=== PATIENT | female | born 1995 | race Caucasian/White ===

== ENCOUNTER → 2019-11-12 11:18 | Outpatient (BNVA) | payer OTHER, SELFPAY | PROVIDERS: Family Provider Family Medicine; PCP Family Medicine; Visit Provider Psychiatry & Neurology Psychiatry | DX: F33.2 Major depressive disorder, recurrent severe without psychotic features (principal); F40.10 Social phobia, unspecified | CPT/HCPCS: 99213 ==

== ENCOUNTER → 2019-12-02 11:20 | Outpatient (BNVA) | payer OTHER, SELFPAY | PROVIDERS: Family Provider Family Medicine; PCP Family Medicine; Visit Provider Specialist | DX: G47.411 Narcolepsy with cataplexy (principal) | CPT/HCPCS: 99213 ==

== ENCOUNTER → 2020-05-31 11:42 | Outpatient (BNVA) | payer OTHER, SELFPAY | PROVIDERS: Family Provider Family Medicine; PCP Family Medicine; Visit Provider Specialist | DX: G47.419 Narcolepsy without cataplexy (principal) | CPT/HCPCS: G0463 ==

== ENCOUNTER → 2020-06-01 09:52 | Outpatient (BNVA) | payer OTHER, SELFPAY | PROVIDERS: Family Provider Family Medicine; PCP Family Medicine; Visit Provider Specialist | DX: G47.411 Narcolepsy with cataplexy (principal); F15.10 Other stimulant abuse, uncomplicated | CPT/HCPCS: 99214 ==

== ENCOUNTER → 2020-06-13 09:03 | Outpatient (BNVA) | payer OTHER, SELFPAY | PROVIDERS: Family Provider Family Medicine; PCP Family Medicine; Visit Provider Psychiatry & Neurology Psychiatry | DX: G47.411 Narcolepsy with cataplexy (principal); F15.10 Other stimulant abuse, uncomplicated | CPT/HCPCS: 99213 ==

== ENCOUNTER 2020-09-06 18:07 | Emergency (ER) | payer OTHER, SELFPAY ==
[2020-09-06 18:16] VITALS: BP 109/67; PULSE 91; RESP 18; TEMP 36.6; O2SAT 97; BMI 36.3
--- NOTE | 2020-09-06 18:48 | XR_ITS ---
WS: [id number] XR ankle LT min 3V* [id number] REASON FOR EXAM: injury FINDINGS: Ankle mortise is preserved. No fracture or other focal bony abnormality. Soft tissue swelling around the ankle joint. XR/XR ankle LT min 3V* [id number] IMPRESSION: No fracture or dislocation.
--- NOTE | 2020-09-06 19:13 | ED_ITS ---
HPI - Fall General: Chief Complaint: Fall Stated Complaint: INJURIES AFTER HORSE ACCIDENT Time Seen by Provider: 09/06/20 19:13 History of Present Illness: HPI Narrative: Patient is a 24-year-old female comes to the ED after fall injury. Injury occurred just prior to arrival. Patient says she was working outside with some horses today. She says she was walking alongside of a horse and it moved in horses leg knocked patient off balance causing her to stepped into a hole with her left ankle. She then fell down and her head hit a rock. She says that the rock hit the bridge of her nose. Denies any loss of consciousness, headache, vision changes or any neurological symptoms. Patient says she has 10 out of 10 pain on her left ankle. She was able to put weight on it after injury but now that she has been off it it is becoming more painful and swollen. She is not up-to-date on her tetanus. Associated symptoms-after fall: Denies abdominal pain, chest pain, headache(s), hematuria or neck pain Review of Systems Const: Denies: fever(s), chills or fatigue Eyes: Denies: change in vision or eye discomfort ENMT: Reports: other (Small abrasion and swelling at bridge of nose.); Denies: throat pain, odynophagia, nasal discharge or nasal congestion Card: Denies: chest pain, palpitations, edema, swelling of feet/ankles, dyspnea on exertion or orthopnea Resp: Denies: dyspnea, productive cough or non-productive cough GI: Denies: abdominal pain, nausea, vomiting, diarrhea, constipation or hematochezia : Denies: flank pain, dysuria or hematuria Musc: Reports: extremity pain (Left ankle), extremity swelling (Left ankle) and limited range of motion (Left ankle due to pain.); Denies: neck pain or back pain Skin/Breast: Denies: rash or new lesions Neuro: Denies: headache(s), numbness in extremities or weakness in extremities PFSH ED PFSH: Medical History Narcolepsy and cataplexy Surgical History History 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 Family History Other CAD (coronary artery disease) Cancer Diabetes Hypertension Stroke Social History Smoking and tobacco status: current every day smoker cigarettes Second hand smoke exposure: No Alcohol intake: current Alcohol intake frequency: holidays/special occasions only History of recent travel: No Physical Exam 2 Const: COMMON NORMALS: no acute distress, patient oriented x3, healthy appearing and alert GENERAL APPEARANCE: cooperative and comfortable NUTRITIONAL APPEARANCE: overweight HENMT: COMMON NORMALS: normocephalic HEAD & SCALP: normocephalic NOSE: Normal septum present, Abnormal external nose present nasal abrasion (Patient has abrasion on bridge of nose.) and nasal swelling (Bridge of nose); no nasal deviation and no nasal tenderness and Other nasal findings present (No hematoma visualized.); no Epistaxis present MOUTH: Normal oral and palatal mucosa present THROAT: posterior oropharynx normal and uvula midline Eye: COMMON NORMALS: Equal, round and reactive pupils present, EOMs intact bilaterally, conjunctivae normal and normal visual rice by confrontation CONJUNCTIVA: Yes conjunctivae normal PUPIL: Yes Equal, round and reactive pupils present Neck/C-Spine: COMMON NORMALS: supple GENERAL: Yes normal visual inspection Resp: COMMON NORMALS: normal respiratory effort, No retractions, No use of accessory muscles and clear to auscultation bilaterally EFFORT & INSPECTION: Yes able to speak in complete sentences, No tachypneic and No respiratory distress AUSCULTATION: clear to auscultation bilaterally Cardio: COMMON NORMALS: regular rate, regular rhythm, S1 normal heart sound present, S2 normal heart sound present, No gallops present (Cardio), No clicks present (Cardio), No murmurs present (Cardio) and Peripheral pulses 2+ throughout RATE: regular rate RHYTHM: regular rhythm HEART SOUNDS: S1 normal heart sound present and S2 normal heart sound present PERIPHERAL PULSES: Peripheral pulses 2+ throughout GI: COMMON NORMALS: Normal to inspection, nondistended, normoactive bowel sounds present, Soft to palpation, non-tender and no masses PALPATION: Yes Soft to palpation : COMMON NORMALS: Yes no CVA tenderness BLADDER/KIDNEY EXAM: Yes no CVA tenderness Back/Pelvis: COMMON NORMALS: no CVA tenderness Extremity: GENERAL: Yes normal exam except as noted LEFT LOWER EXTREMITY: Yes ankle joint Left ankle: Yes inspection (No visible deformity seen, edema throughout ankle), Yes palpation (Tenderness to palpation over anterior aspect of lateral malleolus.), Yes ROM (Limited due to pain) and Yes neurovascular exam (Intact, pedal pulse 2+) Neuro: COMMON NORMALS: patient oriented x3, CN's II-XII intact bilaterally, moves all extremities, no focal motor deficits and no sensory deficits noted SENSORIUM/ORIENTATION: Yes alert COORDINATION/BALANCE: [id number] test normal SPEECH: speech normal SENSORY EXAM: Yes extremities (intact) MOTOR EXAM: 5/5 motor strength present throughout COORDINATION: [id number]-[id number] test normal Skin: GENERAL SKIN EXAM: dry skin Course Vital Signs: Vital signs: Vital Signs Temperature 97.8 F 09/06/20 18:16 Pulse Rate 91 09/06/20 18:16 Respiratory Rate 18 09/06/20 18:16 Blood Pressure 109/67 09/06/20 18:16 Pulse Oximetry 97 09/06/20 18:16 MDM - Fall MDM Narrative: Medical decision making narrative: Patient 24-year-old female comes to the ED with fall injury. She has left ankle pain and also fell and hit bridge of nose on a rock. Neuro exam was completely normal. Patient has some swelling on the bridge of nose with small superficial abrasion. No septal hematoma seen. Left ankle has some edema and tenderness upon palpation on the anterior aspect of the lateral malleolus. Pedal pulse 2+. X-ray of ankle showed no acute fractures or findings. CT of head showed no acute findings. CT facial bones showed nondisplaced fracture of nasal bone. I placed an order with case management for patient be referred to ENT. Patient was discharged and diagnosed with left ankle sprain and a closed fracture of the nasal bone. She was told to rest, ice, elevate and compress left ankle with Chuck wrap. She was told the use crutches for the next couple days to allow for healing. Return to ED precautions given. Patient was given updated tetanus today as well. Patient understood and agreed with plan. Imaging Data^: Xray Ortho: Attestation: I personally reviewed and interpreted this imaging study as follows: My impression: Left ankle x-ray?no acute fractures or findings seen. Soft tissue swelling seen. CT Head: Attestation: I personally reviewed and interpreted this imaging study as follows: Radiologist's impression: [facility] [place] [address] CT Scan Report Signed Patient: Christi Subramanian Unit #: [id number] : 1995 9 Age/Sex: 24 / F ADM Date: 09/06/20 Loc: ER Room/Bed: Attending Dr: Ordering Provider/Ordering MD: Jewel Onofre Date of Service: 09/06/20 Procedure(s): CT head wo con* [id number] Accession Number(s): [id number] Report Number: [id number] PROCEDURE INFORMATION: Exam: CT Head Without Contrast Exam date and time: 09/06/2020 7:46 PM Age: 24 years old Clinical indication: Injury or trauma; Fall; Blunt trauma (contusions or hematomas); Injury date: 09/06/2020; Additional info: Hit head on rock. No loc TECHNIQUE: Imaging protocol: Computed tomography of the head without contrast. Radiation optimization: All CT scans at this facility use at least one of these dose optimization techniques: automated exposure control; mA and/or kV adjustment per patient size (includes targeted exams where dose is matched to clinical indication); or iterative reconstruction. COMPARISON: No relevant prior studies available. RADIATION DOSE METRICS: Total DLP (mGy-cm): 786.07 FINDINGS: Brain: Normal. No hemorrhage. Unremarkable white matter. No mass effect. Cerebral ventricles: No ventriculomegaly. Bones/joints: Unremarkable. No acute fracture. Paranasal sinuses: Visualized sinuses are unremarkable. No fluid levels. Mastoid air cells: Visualized mastoid air cells are well aerated. Soft tissues: Unremarkable. CT/CT head wo con* [id number] IMPRESSION: No acute intracranial abnormality. Radiation Dose CTDIVOL = (mGy): DLP = 786.07 (mGy-cm) Dictated By: Trish Rodriguez Signed By: Trish Rodriguez Signed Date/Time: 09/06/201957 DD/ [address]: Attestation: I personally reviewed and interpreted this imaging study as follows: Radiologist's impression: [facility] [address] [place] [address]. [place] [address] CT Scan Report Signed Patient: Christi Subramanian Unit #: [id number] : 1995 [id number] Age/Sex: 24 / F ADM Date: 09/06/20 Loc: ER Room/Bed: Attending Dr: Ordering Provider/Ordering MD: Jewel Onofre Date of Service: 09/06/20 Procedure(s): CT facial bones wo con* [id number] Accession Number(s): [id number] Report Number: [id number] PROCEDURE INFORMATION: Exam: CT Maxillofacial Without Contrast Exam date and time: 09/06/2020 7:46 PM Age: 24 years old Clinical indication: Injury or trauma; Fall; Blunt trauma (contusions or hematomas); Nose; Additional info: Injury to nose TECHNIQUE: Imaging protocol: Computed tomography images of the face without contrast. Radiation optimization: All CT scans at this facility use at least one of these dose optimization techniques: automated exposure control; mA and/or kV adjustment per patient size (includes targeted exams where dose is matched to clinical indication); or iterative reconstruction. COMPARISON: No relevant prior studies available. RADIATION DOSE METRICS: Total DLP (mGy-cm): 734.23 FINDINGS: Orbital cavity: Orbits are normal. Globes are unremarkable. Bones/joints: There are nondisplaced fractures of the distal nasal bones. The zygoma, orbital olivarez, pterygoids and mandible are intact. Paranasal sinuses: There is trace mucosal thickening in the ethmoidal air cells. No air-fluid levels. Soft tissues: There is mild soft tissue edema overlying the nose. CT/CT facial bones wo con* [id number] IMPRESSION: There are subtle nondisplaced fractures of the distal nasal bones. No additional acute bony abnormality. Radiation Dose CTDIVOL = (mGy): DLP = 734.23 (mGy-cm) Dictated By: Trish Rodriguez Signed By: Trish Rodriguez Signed Date/Time: 09/06/202001 DD/ 00 Discharge Plan Discharge Patient Disposition: Home Clinical Impression: Left ankle sprain Qualifiers: Encounter type: initial encounter Involved ligament of ankle: unspecified ligament Qualified Code(s): S93.402A - Sprain of unspecified ligament of left ankle, initial encounter Closed fracture nasal bone Qualifiers: Encounter type: initial encounter Qualified Code(s): S02.2XXA - Fracture of nasal bones, initial encounter for closed fracture Condition: Stable Prescriptions: New ibuprofen 800 mg tablet 800 mg PO Q8H PRN (Reason: pain) Qty: 30 RF: 0 No Action venlafaxine [Effexor XR] 150 mg capsule,extended release 24hr 300 mg PO QAM Qty: 60 RF: 2 hydroxyzine pamoate [Vistaril] 25 mg capsule 25 mg PO TID PRN (Reason: anxiety) Qty: 90 RF: 2 Vyvanse 70 mg capsule 70 mg PO DAILY 30 Days Qty: 30 RF: 0 Discharge Orders: Discharge Order (Routine); Ordered 09/06/20 Ordered By: Jewel Onofre Referrals: Lg Jefferson MD [Primary Care Provider] - Discharge Diet: Regular Discharge Activity: Limit activity as instructed and Use walker/crutches as instructed Patient Instructions: Ankle Sprain (ED), Nasal Fracture (ED) Activity Restrictions/Additional Instructions: Follow-up with medical provider as directed. Case management should be contacting you in the next several days to set up an appointment with ENT doctor. Rest, ice and elevate and wrap left ankle. For the next 3 days use crutches for ambulation and limit weightbearing to allow for healing. After that start weightbearing as tolerated. Apply cold pack on nose as well to help with swelling. Take medications as prescribed. Return to the ER or your medical provider if condition worsens. Please read and understand discharge instructions. If any questions, please ask. Coding Level of Care Code ED Wellness Trainer for Miranda Fwmandie Exam Comprehensive
--- NOTE | 2020-09-06 19:21 | CTR_ITS ---
PROCEDURE INFORMATION: Exam: CT Head Without Contrast Exam date and time: 09/06/2020 7:46 PM Age: 24 years old Clinical indication: Injury or trauma; Fall; Blunt trauma (contusions or hematomas); Injury date: 09/06/2020; Additional info: Hit head on rock. No loc TECHNIQUE: Imaging protocol: Computed tomography of the head without contrast. Radiation optimization: All CT scans at this facility use at least one of these dose optimization techniques: automated exposure control; mA and/or kV adjustment per patient size (includes targeted exams where dose is matched to clinical indication); or iterative reconstruction. COMPARISON: No relevant prior studies available. RADIATION DOSE METRICS: Total DLP (mGy-cm): 786.07 FINDINGS: Brain: Normal. No hemorrhage. Unremarkable white matter. No mass effect. Cerebral ventricles: No ventriculomegaly. Bones/joints: Unremarkable. No acute fracture. Paranasal sinuses: Visualized sinuses are unremarkable. No fluid levels. Mastoid air cells: Visualized mastoid air cells are well aerated. Soft tissues: Unremarkable. CT/CT head wo con* [id number] IMPRESSION: No acute intracranial abnormality. Radiation Dose CTDIVOL = (mGy): DLP = 786.07 (mGy-cm)
--- NOTE | 2020-09-06 19:21 | CTR_ITS ---
PROCEDURE INFORMATION: Exam: CT Maxillofacial Without Contrast Exam date and time: 09/06/2020 7:46 PM Age: 24 years old Clinical indication: Injury or trauma; Fall; Blunt trauma (contusions or hematomas); Nose; Additional info: Injury to nose TECHNIQUE: Imaging protocol: Computed tomography images of the face without contrast. Radiation optimization: All CT scans at this facility use at least one of these dose optimization techniques: automated exposure control; mA and/or kV adjustment per patient size (includes targeted exams where dose is matched to clinical indication); or iterative reconstruction. COMPARISON: No relevant prior studies available. RADIATION DOSE METRICS: Total DLP (mGy-cm): 734.23 FINDINGS: Orbital cavity: Orbits are normal. Globes are unremarkable. Bones/joints: There are nondisplaced fractures of the distal nasal bones. The zygoma, orbital olivarez, pterygoids and mandible are intact. Paranasal sinuses: There is trace mucosal thickening in the ethmoidal air cells. No air-fluid levels. Soft tissues: There is mild soft tissue edema overlying the nose. CT/CT facial bones wo con* [id number] IMPRESSION: There are subtle nondisplaced fractures of the distal nasal bones. No additional acute bony abnormality. Radiation Dose CTDIVOL = (mGy): DLP = 734.23 (mGy-cm)
[2020-09-06] MEDS: HYDROcodone-acetaminophen 7.5-325 mg Tablet 1 TAB PO (19:40)
[2020-09-06] MEDS: tetanus-dipt-pertussis 0.5 mL SDV IM (20:39)
--- NOTE | 2020-09-07 09:05 | DCPLANNER ---
mailroom manager had message to schedule a follow up appointment for patient with Dr. Thibodeaux, ENT. mailroom manager faxed patients information to the office of Dr. Thibodeaux for review. Clinic will call patient with appointment information.
--- NOTE | 2020-09-23 13:17 | DCPLANNER ---
Patient had a follow up appointment scheduled for 09.14.[address] Thibodeaux, ENT - patient did attend appointment.
== END 2020-09-06 20:44 | disposition home or self-care (01) ==
PROVIDERS: Emergency Provider Physician Assistant; PCP Family Medicine
DX: S93.402A Sprain of unspecified ligament of left ankle, initial encounter (principal); S02.2XXA Fracture of nasal bones, initial encounter for closed fracture; F17.210 Nicotine dependence, cigarettes, uncomplicated; W19.XXXA Unspecified fall, initial encounter; Z23 Encounter for immunization
CPT/HCPCS: 12345; 70450; 70486; 73610; 90715; 99281; 99283

== ENCOUNTER → 2021-11-22 16:20 | Outpatient (BNVA) | payer OTHER, SELFPAY | PROVIDERS: PCP Family Medicine; Visit Provider Family Medicine | DX: R14.0 Abdominal distension (gaseous) (principal); R10.11 Right upper quadrant pain; E66.9 Obesity, unspecified | CPT/HCPCS: 80053; 80061; 83036; 83721; 84439; 84443; 85025 ==

== ENCOUNTER 2021-12-26 14:14 | Outpatient (CLI) | payer OTHER, SELFPAY ==
--- NOTE | 2021-12-26 14:15 | US_ITS ---
WS: [id number] ULTRASOUND ABDOMEN LIMITED CLINICAL INFORMATION: Post prandial pain, bloating, N/V. COMPARISON: None. FINDINGS: Technically difficult examination due to body habitus. Liver Size: Mild hepatomegaly Craniocaudal length: 16.2 cm. Echogenicity: Coarse Surface nodularity: None. Mass (size and location): None. Bile ducts Intrahepatic ducts: Normal. Common bile duct diameter: 0.5 cm. Gallbladder Normal. Gallstones: None. Gallbladder sludge: None. Gallbladder wall thickening: None. Pericholecystic fluid: None. Sonographic Morales sign: Absent. Pancreas Normal as visualized. Right kidney: Normal. Hydronephrosis: None. Size: 12.1 cm x 6.2 cm x 6.1 cm. Abdominal aorta and IVC Visualized portions are normal. Ascites: None. US/US abdomen limited 35844 IMPRESSION: Technically difficult examination. 1. Mild hepatomegaly with diffuse fatty infiltration. 2. Normal gallbladder. 3. Normal common bile duct. 4. No hydronephrosis in RIGHT kidney.
== END 2021-12-26 14:15 | disposition home or self-care (01) ==
LOC: RAD 14:16
PROVIDERS: PCP Family Medicine; Visit Provider Family Medicine
DX: E66.9 Obesity, unspecified (principal); R10.11 Right upper quadrant pain; R14.0 Abdominal distension (gaseous); R16.0 Hepatomegaly, not elsewhere classified; K76.0 Fatty (change of) liver, not elsewhere classified
CPT/HCPCS: 76705

== ENCOUNTER 2022-02-21 15:59 | Outpatient (CLI) | payer OTHER, SELFPAY ==
--- NOTE | 2022-02-21 18:43 | ECG_ITS ---
[facility] Test Date: 2022-02-21 Pat Name: Christi Villavicencio Department: Room: Gender: Female Tube Puller: : 1995 Requested By: Kunal Geiger Order Number: [id number] Adalgisa MD: Celine Trevino M.D. Measurements Intervals [place] Rate: 93 P: 32 VA: 148 QRS: -27 QRSD: 94 T: 20 QT: 347 QTc: 432 Interpretive Statements SINUS RHYTHM BORDERLINE LEFT AXIS DEVIATION [QRS AXIS < -20] No previous ECG available for comparison Electronically Signed On 02-21-2022 22:51:32 CDT by Celine Trevino M.D. [email or web address]
== END 2022-02-21 16:00 | disposition home or self-care (01) ==
LOC: RT 16:01
PROVIDERS: PCP Family Medicine; Visit Provider Nurse Practitioner Psychiatric/Mental Health
DX: Z03.89 Encounter for observation for other suspected diseases and conditions ruled out (principal)
CPT/HCPCS: 93005

== ENCOUNTER → 2023-01-21 11:12 | Outpatient (BNVA) | payer OTHER, SELFPAY | PROVIDERS: PCP Family Medicine; Visit Provider Family Medicine | DX: R10.32 Left lower quadrant pain (principal); R10.11 Right upper quadrant pain; K21.9 Gastro-esophageal reflux disease without esophagitis; F41.1 Generalized anxiety disorder; E66.9 Obesity, unspecified | CPT/HCPCS: 80053; 80061; 83036; 85025 ==

== ENCOUNTER 2023-02-06 06:59 | Day surgery (SDC) | payer OTHER, SELFPAY ==
[2023-02-04 09:21] VITALS: BMI 53.2
[2023-02-06 07:20] VITALS: BP 132/94; PULSE 99; RESP 18; TEMP 36.1; O2SAT 95
[2023-02-06] MEDS: sodium chloride 0.9% 1,000 ML 30 ML IV (07:24)
[2023-02-06 07:28] LABS: OR HCG Qualitative Urine Negative (Negative)
--- NOTE | 2023-02-06 07:37 | ANES.PREANE2 ---
Pre-Anesthetic Assessment Height/Weight: Height 1.7 m Weight 154.221 kg Temp Pulse Resp BP Pulse Ox O2 Del Method 97.0 F L 99 18 132/94 95 Room Air 02/06/23 07:20 02/06/23 07:20 02/06/23 07:20 02/06/23 07:20 02/06/23 07:20 02/06/23 07:20 Operation Date: 02/06/23 08:30 Proposed Procedures p 21039 EGD 34517 Colonoscopy.K21.9,R10.32,K92.1(Not Applicable) - Navarro Coffman DO s Colonoscopy(Not Applicable) - Navarro Coffman DO Familial anesthetic complications: PONV Was Beta Afua taken within 24 hours: N/A Was Clonidine taken within 24 hours: N/A Last intake: Intake Last Liquid Date 02/05/23 Last Liquid Time 23:30 Last Solid Date 02/04/23 Last Solid Time 22:00 Social Tobacco ( every now and again ) Marajuana occasionally Exam alert and oriented x 3 Airway Submandibular: within normal limits Cervical ROM: within normal limits Mallampati: Class I Dentition: full History/ROS No significant history except as noted Pulmonary narcolepsy, cataplexy CV/HEM None reported None reported Hepatic None reported GI Gastroesophageal Reflux Disease Metabolic Diabetes Mellitus (borderline) and Morbid Obesity Musc/skel None reported Neuropsych Seizure (states shes had 2-3. never went to ER didnt think anything of it, wasnt that bad ) Anesthetic Plan ASA status: 3 Anesthesia: Anesthesia Evaluation and MAC Risk of > 500 ml blood loss (7ml/kg in children): No Medications/Allergies Home Medications Medication Instructions Recorded Confirmed Last Taken Type ibuprofen 800 mg tablet 800 mg PO Q8H PRN pain #30 tabs 09/06/20 02/06/23 02/03/23 Rx hydroxyzine pamoate 25 mg capsule 25 mg PO TID PRN anxiety #90 caps 03/26/22 02/06/23 3 Months Ago Rx (Vistaril) ~11/06/22 modafinil 200 mg tablet (Provigil) 200 mg PO BID 03/26/22 02/06/23 02/05/23 History pantoprazole 40 mg tablet,delayed 40 mg PO BID 6 weeks #84 tabs 01/15/23 02/06/23 02/05/23 Rx release (Protonix) Allergies Allergy/AdvReac Type Severity Reaction Status Date / Time No Known Allergies Allergy Verified 01/21/23 10:39 Current Medications Generic Name Dose Route Start Last Admin Trade Name Nancy PRN Reason Stop Dose Admin Sodium Chloride 1,000 mls @ 30 mls/hr 02/06/23 07:15 02/06/23 07:24 Sodium Chloride 0.9% IV 02/07/23 07:14 30 mls/hr .Q24H WILLIAM Administration PFS Anesthesia Medical History Bereavement Loss of older brother on January 30, 2005 Generalized anxiety disorder Major depressive disorder, recurrent episode with anxious distress Narcolepsy and cataplexy Other stimulant dependence, in remission Methamphetamines, in early remission Psychiatric care Surgical History History 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 Family History Other CAD (coronary artery disease) Cancer Diabetes Hypertension Stroke Social History Smoking and tobacco status: never smoked Second hand smoke exposure: No Alcohol intake: current Alcohol intake frequency: holidays/special occasions only Substance/Drug Use: former Female Reproductive History Date of last menstrual period: 02/04/23 Data Anesthesia Cardiac Studies: No Data to Display
--- NOTE | 2023-02-06 08:41 | W.PM.OPSUD ---
Surgery/Procedure H&P Update DATE OF PROCEDURE: February 06, 2023 DATE H&P PERFORMED: 01/15/23 H&P UPDATE INFORMATION: I have reviewed H&P completed within last 30 days, I have examined patient prior to procedure and No changes to prior documentation PLANNED PROCEDURE: Operation Date: 02/06/23 08:30 Proposed Procedures p 42121 EGD 11799 Colonoscopy.K21.9,R10.32,K92.1(Not Applicable) - DO tawny Piedra Colonoscopy(Not Applicable) - Navarro Coffman DO
[2023-02-06 09:05] VITALS: BP 126/72; PULSE 95; RESP 16; TEMP 36.1; O2SAT 94
[2023-02-06 09:20] VITALS: BP 115/81; PULSE 85; RESP 18; O2SAT 96
--- NOTE | 2023-02-06 09:26 | PM.PN ---
Vitals/I&O/Wt Last Vital Signs Temp 97.0 F L 02/06/23 09:05 Pulse 85 02/06/23 09:20 Resp 18 02/06/23 09:20 BP 115/81 02/06/23 09:20 Pulse Ox 96 02/06/23 09:20 O2 Del Method Nasal Cannula 02/06/23 09:20 O2 Flow Rate 10 02/06/23 09:20 02/05/23 02/06/23 02/06/23 22:59 06:59 14:59 Intake Total 300 / 300 Balance 300 / 300 A&P Assessment and plan (1) GERD (gastroesophageal reflux disease): (2) Hematochezia: (3) Left lower quadrant pain: (4) Other stimulant dependence, in remission: Plan Patient presented for an outpatient EGD and colonoscopy. She required 600 mg of propofol in order to begin the EGD. During the procedure she was still combative and then began turning blue at the end of the procedure, requiring [id number]. The colonoscopy was canceled for the patient's safety. Due to the amount of propofol given, and what may also be in her system currently, I deemed the situation unsafe to continue. Postprocedure she was difficult to arouse and labs were drawn as part of evaluation to determine if patient requires admission. In order to proceed with colonoscopy in the future she will likely require general anesthesia and intubation. Attestations Medical Necessity Statement*: She will be admitted or discharged home depending on how she recovers and the results of her work-up Coding Level of Care Code Acute Code for g Fwd Diagnoses GERD (gastroesophageal reflux disease) K21.9 Hematochezia K92.1 Left lower quadrant pain R10.32 Other stimulant dependence, in remission F15.21
[2023-02-06 09:30] VITALS: BP 136/92; PULSE 101; RESP 18; O2SAT 93
[2023-02-06 09:40] VITALS: BP 133/83; PULSE 96; RESP 18; O2SAT 95
[2023-02-06 10:06] LABS: Hematocrit 38.7 % (37.0-47.0); Hemoglobin 12.4 g/dL (11.5-15.3); Mean Corpuscular Hemoglobin 27.7 pg (28.0-34.0); Mean Corpuscular Volume 86.6 fl (81-99); Mean Platelet Volume 10.6 fL (7.4-10.4); Platelet Count 250 10^3/cmm (130-400); Red Blood Count 4.47 10^6/uL (4.1-5.3); Red Cell Distribution Width 13.1 % (12.1-15.1); White Blood Count 8.6 10^3/uL (4.0-10.0)
[2023-02-06 10:28] LABS: Alanine Aminotransferase 29 U/L (0-33); Albumin Level 3.8 g/dL (3.5-5.2); Alkaline Phosphatase 67 U/L (35-105); Anion Gap 14.6 (5-19); Aspartate Amino Transferase 30 U/L (0-32); Blood Urea Nitrogen 8 mg/dL (6-20); Calcium 8.6 mg/dL (8.5-10.5); Carbon Dioxide 26 mmol/L (22-29); Chloride 102 mmol/L (98-107); Globulin 3.2 g/dL (1.3-4.6); Glomerular Filtration Rate 121.8 mL/min (90-130); Glucose 122 mg/dL (65-115); Osmolality Calculated 288 mOsm/kg (285-295); Potassium 3.6 mmol/L (3.5-5.1); Sodium 139 mmol/L (136-145); Total Bilirubin 0.5 mg/dL (0.15-1.2)
[2023-02-06 11:03] LABS: Absolute Eosinophils 0.2 10^3/cmm (0.0-0.7); Absolute Segmented Neutrophil 4.9 10/cmm (1.6-7.1); Band Neutrophils Absolute 0.1 10^3/cmm (0.0-1.2); Eosinophils 3 %; Lymphocytes 34 %; Lymphocytes Absolute 2.9 10^3/cmm (1.2-3.4); Monocytes Absolute 0.3 10^3/cmm (0.1-0.6); Platelet Estimate Normal (Normal); Segmented Neutrophils 57 %; Total Cells Counted 100 (0-100)
--- NOTE | 2023-02-06 15:01 | ANE.PACU2 ---
Inpatient post-anesthesia follow up: Airway intact: Yes Vital signs: Temperature 97.0 F Pulse Rate 96 Respiratory Rate 18 Blood Pressure 133/83 Pulse Oximetry 95 Oxygen Delivery Me thod Room Air Oxygen Flow Rate 10 Fraction of Inspir ed Oxygen Hydration adequate: Yes Nausea and vomiting: No Pain level: 2 Mental status: Baseline
[2023-02-10 12:04] LABS: Amphetamine negative; Barbiturates negative; Benzodiazepines negative; Cocaine Metabolites negative; Marijuana(Tetrahydrocannabino) negative; Opiates negative; PCP (Phencyclidine) negative
== END 2023-02-06 10:18 | disposition home or self-care (01) ==
PROVIDERS: Anesthesiology; PCP Family Medicine; Visit Provider Surgery
PROC: 0DJ08ZZ Inspection of Upper Intestinal Tract, Via Natural or Artificial Opening Endoscopic (ICD-10-PCS; CPT 43235; 2023-02-06 08:30)
DX: R10.32 Left lower quadrant pain (principal); K21.9 Gastro-esophageal reflux disease without esophagitis; K92.1 Melena; G47.411 Narcolepsy with cataplexy; E11.9 Type 2 diabetes mellitus without complications; E66.01 Morbid (severe) obesity due to excess calories; Z68.43 Body mass index [BMI] 50.0-59.9, adult; F15.21 Other stimulant dependence, in remission
CPT/HCPCS: 43239; 80053; 80307; 81025; 84703; 85007; 85027; 88305; J2704; J7030

== ENCOUNTER 2023-02-24 23:37 | Emergency (ER) | payer OTHER, SELFPAY ==
[2023-02-25 00:03] VITALS: BP 158/106; PULSE 93; RESP 18; TEMP 36.8; O2SAT 97; BMI 53.2
--- NOTE | 2023-02-25 00:08 | W.ED.ABDPA2 ---
HPI - Abdominal Pain General: Chief Complaint: Abdominal Pain Stated Complaint: abdomen swelling Time Seen by Provider: 02/24/23 23:46 History of Present Illness: 27-year-old female comes in today with abdominal discomfort. Patient reports epigastric discomfort radiating to the right. Patient reports symptoms for the last 2 to 3 days. Patient reports passing gas and having normal bowel movements. Patient reports increase in pain, nothing makes pain better or worse. Patient is recently had an upper endoscopy and has been placed on pantoprazole. Associated Symptoms: Denies constipation, diarrhea, nausea and vomiting Review of Systems General: Reports: 10 or more systems reviewed and unremarkable except in HPI and below Card: Denies: chest pain Resp: Denies: dyspnea GI: Reports: abdominal pain; Denies: nausea, vomiting, diarrhea or constipation : Denies: difficulty voiding Musc: Denies: back pain Skin/Breast: Denies: rash PFSH ED PFSH: Medical History Bereavement Loss of older brother on January 30, 2005 Generalized anxiety disorder Major depressive disorder, recurrent episode with anxious distress Narcolepsy and cataplexy Other stimulant dependence, in remission Methamphetamines, in early remission Psychiatric care Surgical History History 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 Family History Other CAD (coronary artery disease) Cancer Diabetes Hypertension Stroke Social History Smoking and tobacco status: never smoked Second hand smoke exposure: No Alcohol intake: current Alcohol intake frequency: holidays/special occasions only Substance/Drug Use: former Physical Exam Const: COMMON NORMALS: alert HENMT: COMMON NORMALS: normocephalic HEAD & SCALP: normocephalic Neck/C-Spine: COMMON NORMALS: full ROM Resp: COMMON NORMALS: normal respiratory effort and clear to auscultation bilaterally AUSCULTATION: clear to auscultation bilaterally Cardio: COMMON NORMALS: regular rate and regular rhythm RATE: regular rate RHYTHM: regular rhythm GI: INSPECTION: Yes normal to inspection AUSCULTATION: Yes normoactive bowel sounds PALPATION: Yes Tenderness to palpation present (GI) (Generalized) and Yes Other GI palpation findings present (Mild distention) Extremity: COMMON NORMALS: full ROM Neuro: SENSORIUM/ORIENTATION: Yes alert Skin: COMMON NORMALS: turgor normal GENERAL SKIN EXAM: turgor normal Course Vital Signs: Vital signs: Vital Signs Temperature 98.2 F 02/25/23 00:03 Pulse Rate 93 02/25/23 00:03 Respiratory Rate 18 02/25/23 00:03 Blood Pressure 158/106 02/25/23 00:03 Pulse Oximetry 97 02/25/23 00:03 Oxygen Delivery Me thod Room Air 02/25/23 00:03 MDM - Abdominal Pain Medical Decision Making 27-year-old female comes in today for complaints of abdominal distention and epigastric pain. On exam patient does have some mild distention, hollow sounding on percussion, normal active bowel sounds. Generalized tenderness in the upper right and left rice of the abdomen. Vital signs are normal except for some mild elevation of blood pressure. Patient is morbidly obese. Differential diagnosis includes but not limited to adverse drug effect, gastritis, constipation, colitis. CT scan showed no significant abnormalities. CBC had a mild elevation white count 11,000. CMP was unremarkable except for some mild elevation in blood glucose at 175. Reviewed exam with patient with recommendations for treatment of abdominal discomfort. Suspect patient might have some gas related pain due to the use of pantoprazole. Other thoughts may be due to abdominal muscle strain. Patient reported understanding and agreed to plan and will follow-up with primary care for further evaluation and treatment. No signs of surgical abdomen was noted. Patient was stable. Patient was released to home. Lab Data 02/25/23 00:15 02/25/23 00:15 Labs/Radiology: Radiology Impressions Abdomen/Pelvis CT 02/25/23 00:09 IMPRESSION: 1. Mild fatty infiltration of liver 2. Probable benign or functional right ovarian cyst measuring up to 2.6 cm. No further workup needed. 3. Normal appendix 4. No evidence for ureteral obstruction Laboratory Results WBC 11.2 10^3/uL (4.0-10.0) H 02/25/23 00:15 RBC 5.00 10^6/uL (4.1-5.3) 02/25/23 00:15 Hgb 14.0 g/dL (11.5-15.3) 02/25/23 00:15 Hct 42.9 % (37.0-47.0) 02/25/23 00:15 MCV 85.8 fl (81-99) 02/25/23 00:15 MCH 28.0 pg (28.0-34.0) 02/25/23 00:15 MCHC 32.6 g/dL (30.0-36.0) 02/25/23 00:15 RDW 13.0 % (12.1-15.1) 02/25/23 00:15 Plt Count 263 10^3/cmm (130-400) 02/25/23 00:15 MPV 10.6 fL (7.4-10.4) H 02/25/23 00:15 Neut % (Auto) 50.4 % 02/25/23 00:15 Lymph % (Auto) 40.9 % 02/25/23 00:15 [place] % (Auto) 5.5 % 02/25/23 00:15 Eos % (Auto) 2.3 % 02/25/23 00:15 Baso % (Auto) 0.6 % 02/25/23 00:15 Neut # (Auto) 5.64 10^3/uL (1.8-7.7) 02/25/23 00:15 Lymph # (Auto) 4.6 10^3/uL (0.8-4.8) 02/25/23 00:15 [place] # (Auto) 0.6 10^3/uL (0.2-0.9) 02/25/23 00:15 Eos # (Auto) 0.3 10^3/uL (0.0-0.8) 02/25/23 00:15 Baso # (Auto) 0.1 10^3/uL (0.0-0.1) 02/25/23 00:15 Nucleated RBC % (auto) 0 % 02/25/23 00:15 Nucleated RBCs # 0.0 /100WBC 02/25/23 00:15 Sodium 137 mmol/L (136-145) 02/25/23 00:15 Potassium 4.1 mmol/L (3.5-5.1) 02/25/23 00:15 Chloride 101 mmol/L (98-107) 02/25/23 00:15 Carbon Dioxide 24 mmol/L (22-29) 02/25/23 00:15 Anion Gap 16.1 (5-19) 02/25/23 00:15 BUN 15 mg/dL (6-20) 02/25/23 00:15 Creatinine 0.5 mg/dL (0.5-0.9) 02/25/23 00:15 GFR Calculation 150.3 mL/min (90-130) H 02/25/23 00:15 Glucose 179 mg/dL (65-115) H 02/25/23 00:15 Calculated Osmolality 289 mOsm/kg (285-295) 02/25/23 00:15 Calcium 8.9 mg/dL (8.5-10.5) 02/25/23 00:15 Total Bilirubin 0.2 mg/dL (0.15-1.2) 02/25/23 00:15 AST 23 U/L (0-32) 02/25/23 00:15 ALT 29 U/L (0-33) 02/25/23 00:15 Alkaline Phosphatase 99 U/L (35-105) 02/25/23 00:15 Total Protein 7.2 g/dL (6.6-8.7) 02/25/23 00:15 Albumin 3.9 g/dL (3.5-5.2) 02/25/23 00:15 Globulin 3.3 g/dL (1.3-4.6) 02/25/23 00:15 Lipase 26 U/L (13-60) 02/25/23 00:15 HCG, Qual Negative (Negative) 02/25/23 00:15 Discharge Plan Discharge Patient Disposition: Home Clinical Impression: Abdominal pain Qualifiers: Abdominal location: epigastric Qualified Code(s): R10.13 - Epigastric pain Condition: Stable Prescriptions: No Action pantoprazole [Protonix] 40 mg tablet,delayed release (DR/EC) 40 mg PO BID 42 Days Qty: 84 1RF hydroxyzine pamoate [Vistaril] 25 mg capsule 25 mg PO TID PRN (Reason: anxiety) Qty: 90 3RF Rx Instructions: Take one capsule three times per day as needed for anxiety modafinil [Provigil] 200 mg tablet 200 mg PO BID ibuprofen 800 mg tablet 800 mg PO Q8H PRN (Reason: pain) Qty: 30 0RF Hold Instructions: Resume on 02/09/23. Discharge Orders: Discharge ED (Routine); Ordered 02/25/23 Ordered By: Raz Persaud Referrals: Kunal Fried DO [Primary Care Provider] - Discharge Diet: Usual diet Discharge Activity: Increase activity as tolerated Patient Instructions: Abdominal Pain (ED) Activity Restrictions/Additional Instructions: Home and rest. Drink plenty of water and fluids. Activity as tolerated. Follow-up with primary care for further instruction. Return to ED for new concerns. Coding Level of Care Code ED Mixer Lever Operator for Miranda Cummings
--- NOTE | 2023-02-25 00:09 | CTR_ITS ---
PROCEDURE INFORMATION: Exam: CT Abdomen And Pelvis With Contrast Exam date and time: 02/25/2023 1:00 AM Age: 27 years old Clinical indication: Bloating; Abdominal pain; Localized; Right upper quadrant (ruq); Patient HX: C/O ruq pain with distention. ; Additional info: Ruq pain, abd distention, pain TECHNIQUE: Imaging protocol: Computed tomography of the abdomen and pelvis with contrast. Radiation optimization: All CT scans at this facility use at least one of these dose optimization techniques: automated exposure control; mA and/or kV adjustment per patient size (includes targeted exams where dose is matched to clinical indication); or iterative reconstruction. Contrast material: OMNI 350; Contrast volume: 100 ml; Contrast route: INTRAVENOUS (IV); REPORTING DATA: Count of CT and Cardiac NM exams in prior 12 months: This patient has received 0 known CTs and 0 known cardiac nuclear medicine studies in the 12 months prior to the current study. COMPARISON: US abdomen limited [id number] 12/26/2021 2:27 PM RADIATION DOSE METRICS: Total DLP (mGy-cm): 1445.73 FINDINGS: Liver: There is mild hypoattenuation of the hepatic parenchyma compatible with fatty infiltration. Gallbladder and bile ducts: Normal. No calcified stones. No ductal dilation. Pancreas: Normal. No ductal dilation. Spleen: Normal. No splenomegaly. Adrenal glands: Normal. No mass. Kidneys and ureters: Normal. No hydronephrosis. Stomach and bowel: Unremarkable. No obstruction. No mucosal thickening. Appendix: The appendix is visualized and is normal in configuration. Intraperitoneal space: Unremarkable. No free air. No significant fluid collection. Vasculature: Unremarkable. No abdominal aortic aneurysm. Lymph nodes: Unremarkable. No enlarged lymph nodes. Urinary bladder: Unremarkable as visualized. Reproductive: There is a 2.6 x 2.5 x 2.6 cm hypoattenuation cystic mass seen associated with the right ovary compatible with a benign or functional ovarian cyst. Bones/joints: Unremarkable. No acute fracture. Soft tissues: Unremarkable. CT/CT abdomen pelvis w con* [id number] IMPRESSION: 1. Mild fatty infiltration of liver 2. Probable benign or functional right ovarian cyst measuring up to 2.6 cm. No further workup needed. 3. Normal appendix 4. No evidence for ureteral obstruction
[2023-02-25 00:31] LABS: Basophils # 0.1 10^3/uL (0.0-0.1); Basophils % 0.6 %; Eosinophils # 0.3 10^3/uL (0.0-0.8); Eosinophils % 2.3 %; Hematocrit 42.9 % (37.0-47.0); Lymphocytes # 4.6 10^3/uL (0.8-4.8); Lymphocytes % 40.9 %; Mean Corpuscular HGB Conc 32.6 g/dL (30.0-36.0); Mean Corpuscular Volume 85.8 fl (81-99); Mean Platelet Volume 10.6 fL (7.4-10.4); Monocytes # 0.6 10^3/uL (0.2-0.9); Monocytes % 5.5 %; Neutrophils # 5.64 10^3/uL (1.8-7.7); Neutrophils % 50.4 %; Nucleated Red Blood Cells % 0 %; Platelet Count 263 10^3/cmm (130-400); White Blood Count 11.2 10^3/uL (4.0-10.0)
[2023-02-25 00:51] LABS: HCG, Serum Qual Negative (Negative)
[2023-02-25 01:01] LABS: Alanine Aminotransferase 29 U/L (0-33); Albumin Level 3.9 g/dL (3.5-5.2); Alkaline Phosphatase 99 U/L (35-105); Aspartate Amino Transferase 23 U/L (0-32); Blood Urea Nitrogen 15 mg/dL (6-20); Calcium 8.9 mg/dL (8.5-10.5); Carbon Dioxide 24 mmol/L (22-29); Chloride 101 mmol/L (98-107); Globulin 3.3 g/dL (1.3-4.6); Glomerular Filtration Rate 150.3 mL/min (90-130); Glucose 179 mg/dL (65-115); Lipase 26 U/L (13-60); Osmolality Calculated 289 mOsm/kg (285-295); Sodium 137 mmol/L (136-145); Total Bilirubin 0.2 mg/dL (0.15-1.2); Total Protein 7.2 g/dL (6.6-8.7)
[2023-02-25] MEDS: iohexol 350 mg/mL 500 mL Btl (per mL) IV (01:04)
[2023-02-25 01:06] LABS: Anion Gap 16.1 (5-19)
[2023-02-25 01:07] LABS: Potassium 4.1 mmol/L (3.5-5.1)
[2023-02-25 02:25] LABS: Blood Urine 2+ (Negative); Glucose Urine UA Norm (Normal); Ketones Urine Negative (Negative); Nitrate Urine Negative (Negative); Protein Urine 1+ (Negative); Urine Appearance Cloudy (CLEAR); Urine Color Yellow (Yellow); pH Urine 6.5 (5-7)
[2023-02-25 02:26] LABS: Add Urine Microscopic? YES; Bilirubin Urine Neg (Negative); Leukocyte Esterase Urine 1+ (Negative); Urobilinogen Urine Norm (Negative)
[2023-02-25 02:29] LABS: WBC Urine 25-40 /hpf (0-5)
[2023-02-25 02:30] LABS: Bacteria Urine 2+ /hpf; RBC Urine 0-4 /hpf (0-2); Squamous Epithelial Cell Urine 55-80 /hpf (0-5)
[2023-02-25 02:31] LABS: Renal Epithelial Cells Urine 1 /hpf
[2023-02-25 02:35] VITALS: PULSE 98; RESP 18; O2SAT 98
== END 2023-02-25 02:30 | disposition home or self-care (01) ==
PROVIDERS: Emergency Provider Nurse Practitioner Family; PCP Family Medicine
DX: R10.13 Epigastric pain (principal)
CPT/HCPCS: 74177; 80053; 81001; 83690; 84703; 85025; 99285; Q9967

== ENCOUNTER → 2023-07-10 11:54 | Outpatient (BNVA) | payer OTHER, SELFPAY | PROVIDERS: PCP Family Medicine; Visit Provider Family Medicine | DX: R22.0 Localized swelling, mass and lump, head (principal); R22.2 Localized swelling, mass and lump, trunk; K21.9 Gastro-esophageal reflux disease without esophagitis; R14.0 Abdominal distension (gaseous); R10.32 Left lower quadrant pain | CPT/HCPCS: 80053; 85025 ==

== ENCOUNTER → 2023-09-02 10:19 | Outpatient (BNVA) | payer OTHER, SELFPAY | PROVIDERS: PCP Family Medicine; Visit Provider Nurse Practitioner Family | DX: M79.671 Pain in right foot (principal) | CPT/HCPCS: 73630 ==

== ENCOUNTER 2025-03-01 05:32 | Emergency (ER) | payer MEDICAID, SELFPAY ==
[2025-03-01 05:53] VITALS: BP 138/95; PULSE 118; RESP 17; TEMP 36.6; O2SAT 96
--- NOTE | 2025-03-01 05:57 | W.ED.GENADLT ---
HPI - General Adult General: Chief complaint: Ear Stated complaint: bug in right ear and rash on stomach Time Seen by Provider: 03/01/25 05:52 History of Present Illness: 29-year-old female presents to the emergency room with complaint of rash on her abdomen began 4 to 5 days ago. She has been applying topical xebn-znn-thrhvan ointment to it it has been pruritic but no burning sensation. She also is complaining of a buzzing sensation in her right ear. No drainage from the ear. Associated symptoms: Reports rash; Deny chest pain or dyspnea Related Data Previous Rx's ?Medication ?Instructions ?Recorded triamcinolone acetonide 0.1 % 1 applic topical BID #454 grams 03/01/25 topical ointment Allergies Allergy/AdvReac Type Severity Reaction Status Date / Time No Known Allergies Allergy Verified 02/16/25 14:12 Review of Systems Const: Denies: fever(s) or chills Card: Denies: chest pain Resp: Denies: dyspnea GI: Denies: abdominal pain : Denies: dysuria, urinary frequency or urinary urgency Musc: Denies: neck pain or back pain Skin/Breast: Reports: rash [facility] ED PFSH: Medical History Bereavement Loss of older brother on January 30, 2005 Other stimulant dependence, in remission Methamphetamines, in early remission Generalized anxiety disorder Major depressive disorder, recurrent episode with anxious distress Narcolepsy and cataplexy Surgical History History of surgery for malignant neoplasm Cut out face Family History Other CAD (coronary artery disease) Cancer Diabetes Hypertension Stroke Social History Smoking and tobacco/nicotine status: former use of tobacco/nicotine Second hand smoke exposure: No Alcohol intake: current Alcohol intake frequency: holidays/special occasions only Substance/Drug Use: former Physical Exam Const: COMMON NORMALS: no acute distress GENERAL APPEARANCE: cooperative and comfortable ORIENTATION/CONSCIOUSNESS: Yes awake, Yes oriented to person, Yes oriented to place and Yes oriented to time HENMT: COMMON NORMALS: normocephalic, atraumatic, hearing grossly normal bilaterally, external ears normal, EAC's normal and TM's normal bilaterally HEAD & SCALP: normocephalic and atraumatic EXTERNAL EAR: Yes external ears normal EXTERNAL AUDITORY CANAL: EAC's normal TYMPANIC MEMBRANE: TM's normal bilaterally Resp: COMMON NORMALS: normal respiratory effort, No retractions and No use of accessory muscles Neuro: SENSORIUM/ORIENTATION: Yes oriented to person, Yes oriented to place and Yes oriented to time Skin: OTHER: Contact dermatitis mildly red no vesicles. No induration. Consistent with contact dermatitis. Course Vital Signs: Vital signs: Vital Signs Temperature 97.8 F 03/01/25 05:53 Pulse Rate 118 H 03/01/25 05:53 Respiratory Rate 17 03/01/25 05:53 Blood Pressure 138/95 03/01/25 05:53 Pulse Oximetry 96 03/01/25 05:53 Oxygen Delivery Me thod Room Air 03/01/25 05:53 MDM - General Adult Medical Decision Making Patient still reports buzzing sensation in her ear think she is having tinnitus may have been induced by having had something in her ear but at this point there is no foreign bodies and there are no insects manage no retained cerumen that might be overstimulating the ear canal. Recommend observation for now can follow-up with primary care if symptoms persist. Contact dermatitis apply topical triamcinolone twice a day. Medical Records I reviewed the patient's medical records. Lab Data I reviewed the patient's lab results. No radiology studies performed this visit Discharge Plan Discharge Patient Disposition: Home Clinical Impression: Contact dermatitis, Tinnitus of right ear Condition: Stable Prescriptions: New triamcinolone acetonide 0.1 % ointment 1 applic topical BID Qty: 454 0RF Discharge Orders: Discharge ED (Routine); Ordered 03/01/25 Ordered By: Shravan Witt Referrals: Melissa Reyes DO [Primary Care Provider, Family Practice] Discharge Diet: Usual diet Discharge Activity: Resume usual activity Patient Instructions: Opioid Safety, Pain Management Activity Restrictions/Additional Instructions: Thank you for choosing [facility] for your healthcare needs today. It is very important that you follow up as instructed or that you return to the Emergency Department should you have concerns or if your condition changes or worsens in any way. You were seen this morning with complaints of a rash in the abdominal wall. Rash appears to be from contact dermatitis. There is no sign of secondary infection at this time does not appear to be zoster. Recommend using prescription triamcinolone twice a day. You reported a buzzing sensation in your right ear on exam there is no sign of any insect, foreign body or significant amount of cerumen in the ear. Sensation of buzzing in the ear is called tinnitus. If this persist follow-up with your primary care doctor. Print Language: Italian Coding Level of Care Code ED Jackerman for Miranda Cummings
[2025-03-01 06:16] VITALS: BP 124/82; PULSE 102; O2SAT 98
== END 2025-03-01 06:17 | disposition home or self-care (01) ==
PROVIDERS: Emergency Provider Family Medicine; PCP Family Medicine
DX: L25.9 Unspecified contact dermatitis, unspecified cause (principal); H93.11 Tinnitus, right ear; Z87.891 Personal history of nicotine dependence
CPT/HCPCS: 99283

== ENCOUNTER → 2025-08-19 11:45 | Outpatient (BNVA) | payer MEDICAID, SELFPAY | PROVIDERS: PCP Family Medicine; Visit Provider Family Medicine | DX: Z91.018 Allergy to other foods (principal); R10.31 Right lower quadrant pain | CPT/HCPCS: 82785; 86001; 86003 ==

== ENCOUNTER → 2025-09-06 10:42 | Outpatient (BNVA) | payer MEDICAID, SELFPAY | PROVIDERS: PCP Family Medicine; Visit Provider Family Medicine | DX: R10.31 Right lower quadrant pain (principal) | CPT/HCPCS: 86003; 86008 ==

== ENCOUNTER 2025-09-15 11:44 | Emergency (ER) | payer MEDICAID, SELFPAY ==
[2025-09-15 12:13] VITALS: BP 134/78; PULSE 88; TEMP 36.8; O2SAT 98; BMI 50.7
--- OUTSIDE RECORDS SUMMARY | 2025-09-15 12:37 | XMS_ITS | Encounter Summary ---
Author Organization [facility] Address [address] [place] [address] Care Team Providers Care Estimator And Drafter Supervisor Name Role Phone Unavailable Primary Care Provider Unavailabl e Reason for Visit * Reason Onset Date Comments Follow Up 02/15/2021 DME Encounter Details Date Type Department Care Team (Late st Contact Info) Description 02/15/2021 Telephone [facility] [address] [place] [address] Keanu Gutierrez Follow Up (DME) Social History Tobacco Use Types Packs/Day Years Used Date Smoking Tobacco: Former Smokeless Tobacco: Former Comments Unknown Sex and Gender Information Value Date Recorded Sex Assigned at Not on file Legal Sex Female 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 Sent email to HIM to fax that over. * Telephone Encounter - Flores Olson - 04/04/2021 2:20 PM CDT Per Melissa at [facility], they received clinicals for pt's PAP setup. * Telephone Encounter - Flores Olson - 03/27/2021 9:37 AM CDT Spoke to Melissa at [facility]. They don't have any of the clinicals for this pt. Resent email to [facility] to fax. * Telephone Encounter - Keanu Gutierrez - 03/02/2021 8:58 AM CDT Patient would like to use HOME Placed orders * Telephone Encounter - Alejandra Madrigal - 02/23/2021 2:56 PM CDT Mom left message on my phone wanting a call back at [phone] to discuss which DME to use. * Telephone Encounter - Flores Olson - 02/22/2021 3:07 PM CDT Checking status of DME. Sent letter. 2nd Attempt. * Telephone Encounter - Keanu Gutierrez - 02/15/2021 3:54 PM CDT Sent letter for DME documented in this encounter Plan of Treatment Not on file documented as of this encounter Visit Diagnoses Not on filedocumented in this encounter
--- OUTSIDE RECORDS SUMMARY | 2025-09-15 12:37 | XMS_ITS | Clinical Summary ---
Author Organization [facility] Address [address] [place] [address] Care Team Providers Care Punch Machine Hand Name Role Phone Unavailable Primary Care Provider Unavailabl e Medications ibuprofen (MOTRIN) 800 mg tablet TAKE 1 TABLET BY MOUTH EVERY 8 HOURS NEEDED 09/07/2020 Active venlafaxine (Effexor XR) 150 mg Extended Release 24 hour capsule Take 1 Capsule (150 mg) by mouth daily in the morning. 30 Capsule 1 10/20/2020 Active cpap medical technologist chemistry AUTO CPAP@ 7-17cwp with heated humidifier; Face to Face within 6 mo: yes; Length of Need: 99 mo; nasal mask with headgear q 6 mo; mask only q 3 mo;2cushions q mo; Tubing Heated Yes; non-heated No 1/ 3 mo; H20 Chamber 1/ 6 mo; chin strap/ 6 mo; filters (disp 2 / mo, perm 1 /6 mo) 1 Each 03/02/2021 Active Active Problems No known active problems Social History Tobacco Use Types Packs/Day Years Used Date Smoking Tobacco: Former Smokeless Tobacco: Former Comments Unknown Sex and Gender Information Value Date Recorded Sex Assigned at Not on file Legal Sex Female 8:02 AM HOSPITALITY AMBASSADOR Gender Identity Not on file Sexual Orientation Not on file Last Filed Vital Signs Vital Sign Reading Time Taken Comments Blood Pressure 126/88 01/31/2021 12:04 AM CDT Pulse 136 10/20/2020 1:15 PM HOSPITALITY AMBASSADOR Temperature - - Respiratory Rate - - Oxygen Saturation 96% 10/20/2020 1:15 PM HOSPITALITY AMBASSADOR Inhaled Oxygen Concentration - - Weight 156 kg (344 lb) 10/20/2020 1:15 PM HOSPITALITY AMBASSADOR Height 170.2 cm (5' 7 ) 10/20/2020 1:15 PM HOSPITALITY AMBASSADOR Body Mass Index 53.88 10/20/2020 1:15 PM HOSPITALITY AMBASSADOR Plan of Treatment Health Maintenance Due Date Last Done Comments DTAP/TDAP/TD VACCINES (1 - Tdap) 2016 HEPATITIS B VACCINES (1 of 3 - 19+ 3-dose series) 02/2017 CERVICAL CANCER SCREENING 2018 HPV/Cotest (21-29) 2018 PAP SMEAR 2018 HPV VACCINES (1 - 3-dose SCDM series) 2024 INFLUENZA VACCINE (#1) [address] [place] [address] PPO
--- OUTSIDE RECORDS SUMMARY | 2025-09-15 12:37 | XMS_ITS | Clinical Summary ---
Author Organization [facility] Address [address] [place] [address] Care Team Providers Care Educational Resource Coordinator Name Role Phone Unavailable Primary Care Provider Unavailabl e Allergies No known active allergies Medications venlafaxine (EFFEXOR XR) 150 mg Extended Release 24 hour capsule Take 1 Capsule (150 mg) by mouth daily in the morning. 30 Capsule 1 1 Active cpap medical management trainer AUTO CPAP@ 7-17cwp with heated humidifier; Face to Face within 6 mo: yes; Length of Need: 99 mo; nasal mask with headgear q 6 mo; mask only q 3 mo;2cushions q mo; Tubing Heated Yes; non-heated No 1/ 3 mo; H20 Chamber 1/ 6 mo; chin strap/ 6 mo; filters (disp 2 / mo, perm 1 /6 mo) 1 Each PRN 1 Active ibuprofen (MOTRIN) 800 mg tablet TAKE 1 TABLET BY MOUTH EVERY 8 HOURS NEEDED 0 Active pantoprazole (PROTONIX) 20 mg Tablet, Delayed Release (E.C.) Take 20 mg by mouth daily. Active simethicone 125 mg Tablet, Chewable Take 1 tablet after completing the first half of bowel prep. Take 2 tablets after completing the second half of bowel prep. 3 Tablet 4 Active lipase-protease -amylase DR Eleanor) 36,000-114,000- 180,000 unit capsule take 1 capsule BY MOUTH WITH EVERY MEAL AND ONE WITH EVERY SNACK 270 Capsule 5 Active Active Problems No known active problems Encounters Date Type Department Care Team Description 08/20/2025 Orders Only [facility] G[facility]- [place] [address] [place] [address] Ashanti Reyes MD Abdominal pain, right lower quadrant (Primary Dx) from Last 3 Months Social History Tobacco Use Types Packs/Day Years Used Date Smoking Tobacco: Former Smokeless Tobacco: Former Tobacco Cessation:Counseling Given: Not Answered Feeling Safe Answer Date Recorded Are you in a relationship wi th someone who hurts you emotionally and/or physically? 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 Gender Identity Not on file Sexual Orientation Not on file Last Filed Vital Signs Vital Sign Reading Time Taken Comments Blood Pressure 116/79 03/03/2024 2:51 PM CDT Pulse 83 03/03/2024 2:51 PM CDT Temperature - - Respiratory Rate 16 03/03/2024 2:51 PM CDT Oxygen Saturation 99% 03/03/2024 2:51 PM CDT Inhaled Oxygen Concentration - - Weight 139.7 kg (308 lb) 02/21/2024 5:00 PM CDT Height 170.2 cm (5' 7 ) 01/28/2024 2:33 PM CDT Body Mass Index 48.24 01/28/2024 2:33 PM CDT Plan of Treatment Health Maintenance Due Date Last Done Comments HEPATITIS B VACCINES (1 of 3 - 19+ 3-dose series) 02/2017 CERVICAL CANCER SCREENING 2018 HPV/Cotest (21-29) 2018 PAP SMEAR 2018 HPV VACCINES (1 - 3-dose SCDM series) 2024 INFLUENZA VACCINE (#1) 2025 DTAP/TDAP/TD VACCINES (2 - Td or Tdap) 09/06/[address] [place] [address] [place] [id number] [place] [address] [employer]AN MEDICAID Advance Directives For more information, please contact: [phone] * Full Code (Latest Code Status on File) Date Activated Date Inactivated Comments 03/03/2024 12:53 PM 03/03/2024 4:58 PM
--- NOTE | 2025-09-15 13:08 | ED_ITS ---
HPI - Back Pain/Injury 2 General: Chief Complaint: Back Pain/Injury Stated Complaint: lower back pain Time Seen by Provider: 09/15/25 12:47 History of Present Illness: 29-year-old female presents emergency ro om complaining of low back pain she isolates it to the upper portion of the sacrum at the apex of the gluteal cleft. No fecal incontinence no urinary retention. No radicular leg pain. Associated symptoms: Deny abdominal pain, chills, dysuria, fever(s) or urinary urgency Related Data Home Medications ?Medication ?Instructions ?Recorded ?Confirmed [id number] See Rx Instructions .Route . COMPLEX 08/19/25 09/16/25 (pork)6,000-19,000-30,000 unit capsule,del rel (Creon) modafinil 100 mg tablet 100 mg PO BID 09/15/2509/16 Previous Rx's ?Medication ?Instructions ?Recorded diclofenac sodium 75 mg 75 mg PO Q12H PRN pain #20 t abs 09/15/25 tablet,delayed release Allergies Allergy/AdvReac Type Severity Reaction Status Date / Time No Known Allergies Allergy Verified 09/16/25 14:30 Review of Systems 2 Const: Denies: fever(s) or chills Card: Denies: chest pain Resp: Denies: dyspnea GI: Denies: abdominal pain : Denies: dysuria, urinary frequency or urinary urgency Musc: Reports: back pain; Denies: neck pain Skin/Breast: Denies: rash PFSH ED 2 PFSH: Medical History Bereavement Loss of older brother on January 30, 2005 Other stimulant dependence, in remission Methamphetamines, in early remission Generalized anxiety disorder Major depressive disorder, recurrent episode with anxious distress Narcolepsy and cataplexy Surgical History History of surgery for malignant neoplasm Cut out face Family History Other CAD (coronary artery disease) Cancer Diabetes Hypertension Stroke Social History Smoking and tobacco/nicotine status: former use of tobacco/nicotine Second hand smoke exposure: No Alcohol intake: current Alcohol intake frequency: holidays/special occasions only Substance/Drug Use: former Physical Exam 2 Const: COMMON NORMALS: no acute distress GENERAL APPEARANCE: cooperative and comfortable ORIENTATION/CONSCIOUSNESS: Yes awake, Yes oriented to person, Yes oriented to place and Yes oriented to time HENMT: COMMON NORMALS: normocephalic, atraumatic and hearing grossly normal bilaterally HEAD & SCALP: normocephalic and atraumatic Resp: COMMON NORMALS: normal respiratory effort, No retractions, No use of accessory muscles and clear to auscultation bilaterally AUSCULTATION: clear to auscultation bilaterally Cardio: COMMON NORMALS: regular rate, regular rhythm and No murmurs present (Cardio) RATE: regular rate RHYTHM: regular rhythm Back/Pelvis: OTHER: Examination included the superior aspect of the gluteal cleft there is no evidence of a pilonidal cyst. Extremity: COMMON NORMALS: normal to inspection, capillary refill normal, no clubbing, cyanosis or edema, no calf tenderness and no pedal edema Neuro: SENSORIUM/ORIENTATION: Yes oriented to person, Yes oriented to place and Yes oriented to time Skin: COMMON NORMALS: no rashes or lesions noted GENERAL SKIN EXAM: no rashes or lesions noted Course 2 Vital Signs: Vital signs: Vital Signs Temperature 98.2 F 09/15/25 12:13 Pulse Rate 88 09/15/25 15:18 Blood Pressure 131/87 09/15/25 15:18 Pulse Oximetry 99 09/15/25 15:18 Oxygen Delivery Me thod Room Air 09/15/25 13:54 MDM - Back Pain/Injury Medical Decision Making Medical decision making Social determinants: None I reviewed the patient's medical record. I reviewed the patient's current home meds. Alternate historians: None Differential diagnosis: Coccygeal fracture versus pilonidal cyst versus soft tissue injury secondary to fall Lab Review: Beta-hCG negative CBC unremarkable Imaging: Sacrococcygeal imaging negative for acute fracture Assessment of risk Level of risk: Low Hospitalization considerations: No indication for hospitalization Reexamination: Improvement of pain Assessment and plan: Discharge patient home. She is to follow-up with her primary care doc she states she has had pain in that region before she has a bit of a dimple in the superior portion of the gluteal cleft some of this could be due to body habitus she may have an underlying pilonidal cyst it is not infected at this time if that is the case. Recommend she follow-up with her primary care doctor if she has worsening symptoms development of fever swelling in that area return to the emergency room Labs 09/15/25 14:11 Radiology Impressions Sacrum and Coccyx X-Ray 09/15/25 13:57 IMPRESSION: 1. No sacrococcygeal fracture. Laboratory Results WBC 10.23 10^3/uL (3.29-11.43) 09/15/25 14:11 RBC 4.53 10^6/uL (3.85-5.65) 09/15/25 14:11 Hgb 13.00 g/dL (11.27-16.99) 09/15/25 14:11 Hct 39.4 % (36-47) 09/15/25 14:11 MCV 87.0 fl (85-98) 09/15/25 14:11 MCH 28.7 pg (27-33) 09/15/25 14:11 MCHC 33.0 g/dL (30-55) 09/15/25 14:11 RDW 12.8 % (12.1-15.1) 09/15/25 14:11 Plt Count 250 10^3/cmm (157-399) 09/15/25 14:11 MPV 10.2 fL (7.4-10.4) 09/15/25 14:11 Neut % (Auto) 61.5 % 09/15/25 14:11 Lymph % (Auto) 30.5 % 09/15/25 14:11 [place] % (Auto) 6.0 % 09/15/25 14:11 Eos % (Auto) 1.4 % 09/15/25 14:11 Baso % (Auto) 0.4 % 09/15/25 14:11 Neut # (Auto) 6.30 10^3/uL (1.8-7.7) 09/15/25 14:11 Lymph # (Auto) 3.1 10^3/uL (0.8-4.8) 09/15/25 14:11 [place] # (Auto) 0.6 10^3/uL (0.2-0.9) 09/15/25 14:11 Eos # (Auto) 0.1 10^3/uL (0.0-0.8) 09/15/25 14:11 Baso # (Auto) 0.0 10^3/uL (0.0-0.1) 09/15/25 14:11 Nucleated RBC % (auto) 0 % 09/15/25 14:11 Nucleated RBCs # 0.0 /100WBC 09/15/25 14:11 HCG, Qual Negative (Negative) 09/15/25 14:11 All radiology interpretation(s) finalized by discharge Discharge Plan Discharge Patient Disposition: Home Clinical Impression: Sacral back pain Condition: Stable Prescriptions: New diclofenac sodium 75 mg tablet,delayed release (DR/EC) 75 mg PO Q12H PRN (Reason: pain) Qty: 20 0RF No Action Creon 6,000-19,000 -30,000 unit capsule,delayed release(DR/EC) See Rx Instructions .ROUTE .COMPLEX Rx Instructions: Take 1 capsule by mouth with every meal and one with snacks. modafinil 100 mg tablet 100 mg PO BID Discharge Orders: Discharge ED (Routine); Ordered 09/15/25 Ordered By: Shravan Witt Referrals: Melissa Reyes DO [Primary Care Provider, Family Practice] Discharge Diet: Usual diet Discharge Activity: Increase activity as tolerated Patient Instructions: Opioid Safety, Pain Management, Patient Portal & Farhad Instructions Activity Restrictions/Additional Instructions: Thank you for choosing [facility] for your healthcare needs today. It is very important that you follow up as instructed or that you return to the Emergency Department should you have concerns or if your condition changes or worsens in any way. Emergency department visits are focused on emergent conditions, in some cases you may require further evaluation on an outpatient basis. You are seen emergency room with complaint of pain in the sacral area. X-ray of the sacrum was negative. There is no sign of radicular symptoms on your exam. On physical exam I suspect you may have a pilonidal cyst there is no sign of infection at this time. Recommend you follow-up with your doctor. You are given pain medications to take for the sacral pain. (Please note that included in your discharge packet is information concerning opioid safety and pain management. This information is given to all patients were discharged from the ER regardless of their discharge diagnosis or the medicines they usually take or are prescribed.) Print Language: Frisian Coding Level of Care Code ED Pasteurizing Supervisor for Chg Fwd
[2025-09-15] MEDS: methylPREDNISolone sod succ 125 mg/2 mL INJ IVP (13:50)
[2025-09-15] MEDS: orphenadrine 30 mg/mL Inj 2 mL 60 MG IM (13:50)
[2025-09-15 13:54] VITALS: BP 119/59; PULSE 73; O2SAT 98
--- NOTE | 2025-09-15 13:57 | XR_ITS ---
WS: [id number] Exam: XR sacrum coccyx min 2V 32496 Date/Time of Exam: 09/15/2025 2:44 PM Reason For Exam: pain No sacrococcygeal fracture or dislocation. The SI joints demonstrate minimal degenerative change but are intact. XR/XR sacrum coccyx min 2V 60051 IMPRESSION: 1. No sacrococcygeal fracture.
[2025-09-15 14:24] LABS: Hematocrit 39.4 % (36-47); Hemoglobin 13.00 g/dL (11.27-16.99); Mean Corpuscular HGB Conc 33.0 g/dL (30-55); Mean Corpuscular Hemoglobin 28.7 pg (27-33); Mean Corpuscular Volume 87.0 fl (85-98); Nucleated Red Blood Cells % 0 %; Platelet Count 250 10^3/cmm (157-399); Red Blood Count 4.53 10^6/uL (3.85-5.65); White Blood Count 10.23 10^3/uL (3.29-11.43)
[2025-09-15 14:38] LABS: HCG, Serum Qual Negative (Negative)
[2025-09-15 15:18] VITALS: BP 131/87; PULSE 88; O2SAT 99
== END 2025-09-15 15:26 | disposition home or self-care (01) ==
PROVIDERS: Emergency Provider Family Medicine; PCP Family Medicine
DX: M54.89 Other dorsalgia (principal); Z87.891 Personal history of nicotine dependence
CPT/HCPCS: 36415; 72220; 84703; 85025; 96372; 96374; 96375; 99284; J1885; J2360; J2919